=== PATIENT | male | born 1995 | race Caucasian/White ===

== ENCOUNTER 2017-02-26 18:32 | Emergency (ER) | payer OTHER ==
[~2017-02-26] VITALS: Ht 177.8 cm; Wt 145.5 kg
[~2017-02-26 18:32] MED LIST: NO MEDS
[2017-02-26 18:36] VITALS: Ht 177.8 cm; Wt 145.5 kg
[2017-02-26] MEDS ORDERED: ACETAMINOPHEN 325 MG TAB PO ONE (20:30)
--- NOTE | 2017-02-26 20:44 | ERD ---
ER Documentation Chief Complaint Date/Time DATE: 02/26/17 TIME: 20:33 Chief Complaint abscess head area HPI This pleasant 21-year-old male patient presents to emergency department today with multiple complaints. Patient reports a papule on the top of his head which he scratched and started to bleed, and other painful papule behind right ear. Patient reports allergy symptoms, and a thick scaly on ears and skin behind the ears. Patient reports history of allergies, dermatitis, and asthma. Patient states that he is out of his Claritin,Patient reports watery eyes, nasal congestion, postnasal drip. asthma symptoms are not present. Patient denies any nausea, vomiting, fever, chills, headache. She reports that he washes his hair daily, does not use any hair products. ROS All systems reviewed and are negative except as per history of present illness. Medications Home Meds Active Scripts Betamethasone Dipropionate (Betamethasone Dipropionate) 50 Gm Gel..gm., 50 GM TP BID for 14 Days Prov:DOLORES,NACHO 02/26/17 Loratadine (Loratadine) 10 Mg Tab.rapdis, 10 MG PO DAILY for 30 Days Prov:DOLORES,NACHO 02/26/17 Cephalexin* (Keflex*) 500 Mg Capsule, 500 MG PO QID for 10 Days, CAP Prov:DOLORES,ANCHO 02/26/17 Reported Medications [No Meds] No Conflict Check 09/03/12 Allergies Allergies: Coded Allergies: No Known Allergies (Verified Adverse Reaction, Unknown, 09/03/12) PMhx/Soc Medical and Surgical Hx: pt denies Surgical Hx History of Surgery: No Anesthesia Reaction: No Hx Neurological Disorder: No Hx Respiratory Disorders: Yes (Asthma) Hx Cardiac Disorders: No Hx Psychiatric Problems: No Hx Miscellaneous Medical Probl: No Hx Alcohol Use: No Hx Substance Use: No Hx Tobacco Use: No Smoking Status: Never smoker Physical Exam Vitals Vital Signs Date Time Temp Pulse Resp B/P Pulse Ox O2 Delivery O2 Flow Rate FiO2 02/26/17 18:36 97.8 94 20 142/67 98 Vitals stable, triage notes reviewed Physical Exam Const: No acute distress Head: Right occipital palpable lymph node. None discrete, soft, no bruising, bruising, or discharge. Superior scalp. Patient has oozing papule open with crest. Crust easily removed, scant amount of purulent discharge removed with manual pressure. Scalp presents with white flakes consistent with dandruff. Otherwise scalp is clean, and without lesion Eyes: Normal Conjunctiva PERRLA, EOMI ENT: Bilateral tympanic membranes are retracted, auditory canals are clear, nasal mucosa is pale, terminates +3, clear nasal discharge noted, pharynx injected, tonsils not visualized, uvula rises and falls with pronation, tongue is midline Neck: Full range of motion..~ No meningismus. No palpable cervical chain nodes Resp: Chest rises and falls symmetrically clear to auscultation bilaterally, no rales wheezes or rhonchi Cardio: Abd: Skin: Thick pink plaques behind bilateral ears, flaky pink plaques in the ears. Findings consistent with eczema Back: Ext: Neur: Awake and alert Psych: Normal Mood and Affect Results 24 hrs Current Medications Medications (Trade) Dose Ordered Sig/Magdiel Route PRN Reason Start Time Stop Time Status Last Admin Dose Admin Acetaminophen (Tylenol Tab) 650 mg ONCE ONCE PO 02/26/17 20:30 02/26/17 20:31 DC 02/26/17 20:44 Procedures/MDM This pleasant 21-year-old male patient presents to emergency department today with multiple complaints. Patient has thickened rash scaly pink behind the ears , and in pinna, findings are consistent with psoriasis. Patient also has flaky scalp, a bleeding papule which is of the expresses pus, and watery eyes, runny nose, history of allergic rhinitis and is out of his Claritin. Patient admits to having asthma,has albuterol inhaler at home. Patient has classic allergic triad. Nurse practitioner will treat scalp pustule/abscess as infectious with Keflex, prescribed betamethasone to pronate for skin rash, refill Claritin. Patient is appropriate for outpatient management with routine health maintenance by primary care physician. I feel the patient is stable for discharge at this time. I have discussed results, examination findings, the treatment plan with the patient and family present prior to discharge. Indications for emergent reevaluation, side effects of medication were also discussed. All questions were answered. Patient verbalizes understanding and agrees with plan of care. Departure Diagnosis: Primary Impression: Scalp abscess Additional Impression: Allergic rhinitis Allergic rhinitis trigger: unspecified Allergic rhinitis seasonality: unspecified seasonality Qualified Code: J30.9 - Allergic rhinitis, unspecified allergic rhinitis trigger, unspecified rhinitis seasonality Condition: Good Patient Instructions: Abscess, Antiobiotic Treatment Only, Allergic Rhinitis NACHO BERNAL Feb 26, 2017 20:44
[2017-02-26] MEDS ORDERED: CEPH-443 PO (20:45)
[2017-02-26] MEDS ORDERED: LORA10TA58 PO (20:46)
[2017-02-26] MEDS ORDERED: BETA50GE2 TP (20:48)
== END 2017-02-26 21:05 | disposition home or self-care (01) ==
LOC: FTE 18:32
DX: L02.811 Cutaneous abscess of head [any part, except face] (principal); J30.9 Allergic rhinitis, unspecified
CPT/HCPCS: 99284

== ENCOUNTER 2018-07-23 23:23 | Emergency (ER) | END 2018-07-24 01:58 | disposition home or self-care (01) ==